=== PATIENT | female | born 1990 | race Caucasian/White ===

== ENCOUNTER 2019-02-17 01:31 | Emergency (ER) | payer SELFPAY ==
[~2019-02-17] VITALS: Ht 177.8 cm; Wt 65.9 kg
[2019-02-17 02:09] LABS: BASOPHILS % (AUTO) 0.8 % (0-1); EOSINOPHILS # (AUTO) 0.1 X10'3 (0-0.9); EOSINOPHILS % (AUTO) 1.9 % (0-6); HEMATOCRIT 34.1 % (35.0-45.0); HEMOGLOBIN 11.8 g/dl (12.0-16.0); LYMPHOCYTES # (AUTO) 2.5 X10'3 (1.1-4.8); MEAN CORPUSCULAR HEMOGLOBIN 31.5 PG (27.0-31.0); MEAN CORPUSCULAR HGB CONC 34.7 g/dL (33.0-36.5); MEAN CORPUSCULAR VOLUME 90.8 FL (78-98); MEAN PLATELET VOLUME 8.2 FL (7.4-10.4); MONOCYTES # (AUTO) 0.4 X10'3 (0-0.9); MONOCYTES % (AUTO) 6.7 % (2-12); NEUTROPHILS % (AUTO) 49.6 % (42-75); PLATELET COUNT 222 X10'3 (140-440); RED BLOOD COUNT 3.75 X10'6 (4.20-5.60); RED CELL DISTRIBUTION WIDTH 13.3 % (11.5-14.5)
--- NOTE | 2019-02-17 02:15 | NUR ---
PT STARTING TO HAVE EMESIS USED WALL SUCTION TO KEEP AIRWAY PATENT. SZ PADS PLACED
[2019-02-17 02:18] LABS: ALANINE AMINOTRANSFERASE 19 U/L (12-78); ALBUMIN 3.6 G/DL (3.4-5.0); ALBUMIN/GLOBULIN RATIO 1.1 (1.1-1.5); ALKALINE PHOSPHATASE 46 IU/L (46-116); ANION GAP 8 (8-16); ASPARTATE AMINO TRANSFERASE 19 U/L (10-37); BILIRUBIN,TOTAL 0.2 MG/DL (0.1-1.0); BLOOD UREA NITROGEN 9 MG/DL (7-18); BUN/CREATININE RATIO 11.8 (6.6-38.0); CALCIUM 7.9 MG/DL (8.5-10.1); CHLORIDE 107 MMOL/L (99-107); CREATININE 0.76 MG/DL (0.40-0.90); GLUCOSE 105 MG/DL (70-104); POTASSIUM 3.2 MMOL/L (3.5-5.1); SODIUM 140 MMOL/L (135-145); TOTAL CARBON DIOXIDE 24.6 MMOL/L (24-32); TOTAL PROTEIN 6.8 G/DL (6.4-8.2); eGFR > 90 ML/MIN
[2019-02-17] MEDS ORDERED: ondansetron/PF 4mg/2ml inj IV ONE (02:25)
[2019-02-17 02:39] LABS: URINE HCG NEGATIVE (NEG)
[2019-02-17 02:45] LABS: URINE AMPHETAMINE SCREEN NEGATIVE (Neg); URINE BARBITUATE SCREEN NEGATIVE (Neg); URINE BENZODIAZEPINES SCREEN NEGATIVE (Neg); URINE CANNABINOID SCREEN NEGATIVE (Neg); URINE COCAINE SCREEN NEGATIVE (Neg); URINE METHADONE SCREEN NEGATIVE (Neg); URINE OPIATE SCREEN NEGATIVE (Neg); URINE PHENCYCLIDINE SCREEN NEGATIVE (Neg)
[2019-02-17 02:46] LABS: UA COLLECTION TYPE STRAIGHT CATH
[2019-02-17 02:47] LABS: CLARITY,URINE CLEAR (Clear); COLOR,URINE YELLOW (Yellow); GLUCOSE, URINE NEGATIVE (Neg); KETONES,URINE NEGATIVE (Neg); LEUKOCYTE ESTERASE ,URINE SMALL (Neg); NITRITES, URINE NEGATIVE (Neg); OCCULT BLOOD,URINE TRACE-LYSED (Neg); PROTEIN,URINE NEGATIVE (Neg); UROBILINOGEN,URINE 0.2 E.U/dL (0.2-1.0)
[2019-02-17 02:52] LABS: RBC,URINE NONE SEEN /HPF (0-2); WBC,URINE 0-4 /HPF (0-4)
[2019-02-17 02:53] LABS: BACTERIA,URINE FEW /HPF (Neg); MUCUS STRANDS NONE SEEN /LPF (Neg); SQUAMOUS EPITHELIAL CELL,UR MANY /LPF (FEW)
[2019-02-17 02:54] LABS: ETHANOL 0.365 GM/DL (0.0-0.010)
--- NOTE | 2019-02-17 04:30 | NUR ---
difficult to get a full hx as patient is too intoxicated to respond md cadet aware
--- NOTE | 2019-02-17 05:15 | NUR ---
PT UP OUT TO BED TO AMBULATE TO BATHROOM ASSISTED PT TO BATHROOM
--- NOTE | 2019-02-17 05:16 | NUR ---
PT BACK TO BED , DR PELLETIER AWARE PT AMBULATED TO BATHROOM . ASKED PT WHO SHE WAS WITH AND WHAT HAPPENED . PT STATES "FRIENDS" PT DENIES TAKING ANYTHING EXCEPT ALCOHOL. PT STATES SHE HAS A HISTORY OF LOW BP AND DENIES ANY OTHER MEDICAL CONDITION AT THIS TIME
--- NOTE | 2019-02-17 06:59 | NUR ---
pt sitting up in bed asking to go the restroom, assisted pt to the restroom. pt stated that she did call her mom to come pick her up.
[2019-02-17 08:47] VITALS: BP 98/48
== END 2019-02-17 08:50 | disposition home or self-care (01) ==
LOC: ER 01:32
DX: F10.929 Alcohol use, unspecified with intoxication, unspecified (principal); R11.10 Vomiting, unspecified; R06.03 Acute respiratory distress; Z88.0 Allergy status to penicillin; Y90.9 Presence of alcohol in blood, level not specified
CPT/HCPCS: 36415; 80053; 80305; 80320; 81001; 81025; 84443; 85025; 93005; 96374; 99284; J2405

== ENCOUNTER 2020-04-22 11:57 | Emergency (ER) | payer MEDICAID, OTHER ==
[~2020-04-22] VITALS: Ht 167.6 cm; Wt 130.0 kg
[2020-04-22] MEDS ORDERED: normal saline 1000ML IV soln IVB ONE (12:05)
--- NOTE | 2020-04-22 12:10 | NUR ---
WATER BOTTLE 16 OZ SMELLS LIKE IT IS 3/4 FULL OF VODKA. PA AWARE. WATER BOTTLE DISPOSED OF
--- NOTE | 2020-04-22 12:11 | NUR ---
WATER BOTTLE OF VODKA WAS ACTUALLY 44 OZ
[2020-04-22] MEDS ORDERED: folic acid 1mg/0.2ml inj IV ONE (12:35)
[2020-04-22] MEDS ORDERED: thiamine 100mg/ml 2ml inj. IV ONE (12:35)
[2020-04-22 13:03] LABS: BASOPHILS % (AUTO) 0.3 % (0-1); EOSINOPHILS % (AUTO) 0.3 % (0-6); HEMOGLOBIN 13.3 g/dl (12.0-16.0); LYMPHOCYTES # (AUTO) 1.6 X10'3 (1.1-4.8); LYMPHOCYTES % (AUTO) 20.9 % (21-51); MEAN CORPUSCULAR HEMOGLOBIN 30.7 PG (27.0-31.0); MEAN CORPUSCULAR HGB CONC 33.3 g/dL (33.0-36.5); MEAN CORPUSCULAR VOLUME 92.3 FL (78-98); MEAN PLATELET VOLUME 8.2 FL (7.4-10.4); MONOCYTES # (AUTO) 0.2 X10'3 (0-0.9); NEUTROPHILS # (AUTO) 5.6 X10'3 (1.8-7.7); NEUTROPHILS % (AUTO) 75.5 % (42-75); PLATELET COUNT 254 X10'3 (140-440); RED BLOOD COUNT 4.34 X10'6 (4.20-5.60); RED CELL DISTRIBUTION WIDTH 13.4 % (11.5-14.5); WHITE BLOOD COUNT 7.5 X10'3 (4.5-11.0)
--- NOTE | 2020-04-22 13:09 | NUR ---
ZAINA TURPIN WITHOUT STRAIGHT CATYH
[2020-04-22 13:24] LABS: ALANINE AMINOTRANSFERASE 30 U/L (12-78); ALBUMIN/GLOBULIN RATIO 1.1 (1.1-1.5); ALKALINE PHOSPHATASE 45 IU/L (46-116); ANION GAP 13 (8-16); ASPARTATE AMINO TRANSFERASE 17 U/L (10-37); BILIRUBIN,TOTAL 0.2 MG/DL (0.1-1.0); BLOOD UREA NITROGEN 8 MG/DL (7-18); BUN/CREATININE RATIO 9.4 (6.6-38.0); CALCIUM 8.4 MG/DL (8.5-10.1); CHLORIDE 106 MMOL/L (99-107); CREATININE 0.85 MG/DL (0.40-0.90); GLUCOSE 86 MG/DL (70-104); POTASSIUM 3.7 MMOL/L (3.5-5.1); SODIUM 143 MMOL/L (135-145); TOTAL CARBON DIOXIDE 23.8 MMOL/L (24-32); TOTAL PROTEIN 7.8 G/DL (6.4-8.2); eGFR 79 ML/MIN
--- NOTE | 2020-04-22 13:46 | NUR ---
PATIENT IS THREATENING TO LEAVE AMA AGAIN. I DISUSSED THE FACT THAT SHE IS NOT AXOX4 SO THEREFROE I WOULD NEED TO ALERT [facility] OF HER WHEN SHE LEAVES. SHE THREATENED TO HAVE HER FATHER DAKSHA THE HOSPITAL AND EVERYONE INVILVED IN HER CARE
--- NOTE | 2020-04-22 13:48 | NUR ---
UP TO BSC TO GIVE URINE SAMPLE, PATIETN UNSTEADY ON HER FEET
[2020-04-22 14:07] LABS: URINE AMPHETAMINE SCREEN NEGATIVE (Neg); URINE BARBITUATE SCREEN NEGATIVE (Neg); URINE BENZODIAZEPINES SCREEN NEGATIVE (Neg); URINE CANNABINOID SCREEN NEGATIVE (Neg); URINE COCAINE SCREEN NEGATIVE (Neg); URINE METHADONE SCREEN NEGATIVE (Neg); URINE OPIATE SCREEN NEGATIVE (Neg); URINE PHENCYCLIDINE SCREEN NEGATIVE (Neg)
[2020-04-22 14:10] LABS: CLARITY,URINE CLEAR (Clear); COLOR,URINE YELLOW (Yellow); GLUCOSE, URINE NEGATIVE (Neg); KETONES,URINE NEGATIVE (Neg); LEUKOCYTE ESTERASE ,URINE NEGATIVE (Neg); NITRITES, URINE NEGATIVE (Neg); OCCULT BLOOD,URINE TRACE-LYSED (Neg); PH,URINE 5.5 (4.8-8.0); PROTEIN,URINE NEGATIVE (Neg); UROBILINOGEN,URINE 0.2 E.U/dL (0.2-1.0)
[2020-04-22 14:13] LABS: UA COLLECTION TYPE CLN CATCH MIDSTREAM
[2020-04-22 14:24] LABS: BACTERIA,URINE NONE SEEN /HPF (Neg); RBC,URINE NONE SEEN /HPF (0-2); SQUAMOUS EPITHELIAL CELL,UR FEW /LPF (FEW); WBC,URINE 0-4 /HPF (0-4)
--- NOTE | 2020-04-22 14:30 | NUR ---
SPOKE TO IRAJ AND TRESSA PARENTS OUTSIDE OF HOSPITAL. FATHER STATED THAT HIS DAUGHTER HAS TRIED IT ALL FOR ETOH. FATIMAH LIVES ALONE IN ONE OF HER PAREB HOUSES AND SHE IS FINE TO RETURN
--- NOTE | 2020-04-22 15:55 | NUR ---
SPOKE TO PATIENT'S MOTHER TRESSA STORY [phone]. PATIENT IS READY FOR DISCHARGE
[2020-04-22 16:20] VITALS: BP 112/69
== END 2020-04-22 16:32 | disposition home or self-care (01) ==
LOC: ER 11:57
DX: F10.129 Alcohol abuse with intoxication, unspecified (principal); R45.1 Restlessness and agitation; R47.81 Slurred speech; Z88.0 Allergy status to penicillin; Y90.9 Presence of alcohol in blood, level not specified
CPT/HCPCS: 36415; 71045; 80053; 80305; 80320; 81001; 82948; 85025; 93005; 96361; 96374; 96375; 99285; J3411; J3490; J7030

== ENCOUNTER 2020-11-22 23:31 | Emergency (ER) | payer BC ==
[~2020-11-22] VITALS: Ht 172.7 cm; Wt 63.6 kg
[2020-11-22] MEDS ORDERED: magnesium 2GM in 50ml NS 50 ML IV ONE (23:40)
[2020-11-22] MEDS ORDERED: thiamine inj. 100 MG in normal saline 100ml IV soln 99 ML IV ONE (23:40)
[2020-11-22] MEDS ORDERED: ondansetron/PF 4mg/2ml inj IV ONE (23:40)
[2020-11-22] MEDS ORDERED: normal saline 1000ML IV soln IVB ONE (23:40)
[2020-11-22 23:49] LABS: BASOPHILS # (AUTO) 0.1 X10'3 (0-0.2); BASOPHILS % (AUTO) 0.9 % (0-1); EOSINOPHILS # (AUTO) 0.2 X10'3 (0-0.9); EOSINOPHILS % (AUTO) 2.1 % (0-6); HEMATOCRIT 40.1 % (35.0-45.0); HEMOGLOBIN 13.3 g/dl (12.0-16.0); LYMPHOCYTES # (AUTO) 3.7 X10'3 (1.1-4.8); LYMPHOCYTES % (AUTO) 44.5 % (21-51); MEAN CORPUSCULAR HEMOGLOBIN 30.2 PG (27.0-31.0); MEAN CORPUSCULAR VOLUME 91.5 FL (78-98); MONOCYTES # (AUTO) 0.5 X10'3 (0-0.9); MONOCYTES % (AUTO) 5.8 % (2-12); NEUTROPHILS # (AUTO) 3.8 X10'3 (1.8-7.7); NEUTROPHILS % (AUTO) 46.7 % (42-75); PLATELET COUNT 397 X10'3 (140-440); RED BLOOD COUNT 4.38 X10'6 (4.20-5.60); RED CELL DISTRIBUTION WIDTH 13.8 % (11.5-14.5); WHITE BLOOD COUNT 8.2 X10'3 (4.5-11.0)
[2020-11-23 00:02] LABS: ALANINE AMINOTRANSFERASE 19 U/L (12-78); ALBUMIN 3.8 G/DL (3.4-5.0); ALKALINE PHOSPHATASE 44 IU/L (46-116); ANION GAP 9 (8-16); ASPARTATE AMINO TRANSFERASE 15 U/L (10-37); BILIRUBIN,TOTAL 0.1 MG/DL (0.1-1.0); BLOOD UREA NITROGEN 12 MG/DL (7-18); BUN/CREATININE RATIO 15.8 (6.6-38.0); CALCIUM 8.1 MG/DL (8.5-10.1); CHLORIDE 106 MMOL/L (99-107); CREATININE 0.76 MG/DL (0.40-0.90); GLUCOSE 107 MG/DL (70-104); POTASSIUM 3.6 MMOL/L (3.5-5.1); SODIUM 142 MMOL/L (135-145); TOTAL CARBON DIOXIDE 27.3 MMOL/L (24-32); TOTAL PROTEIN 7.7 G/DL (6.4-8.2); eGFR 89 ML/MIN
[2020-11-23 00:03] LABS: MAGNESIUM 2.3 MG/DL (1.5-2.4)
[2020-11-23 00:04] LABS: ETHANOL 0.372 GM/DL (0.0-0.010)
[2020-11-23] MEDS ORDERED: phenobarbital inj 260 MG in normal saline 100ml IV soln 100 ML IV ONE (00:10)
[2020-11-23 00:19] LABS: CLARITY,URINE CLEAR (Clear); COLOR,URINE STRAW (Yellow); GLUCOSE, URINE NEGATIVE (Neg); KETONES,URINE NEGATIVE (Neg); LEUKOCYTE ESTERASE ,URINE NEGATIVE (Neg); NITRITES, URINE NEGATIVE (Neg); OCCULT BLOOD,URINE NEGATIVE (Neg); PROTEIN,URINE NEGATIVE (Neg); UROBILINOGEN,URINE 0.2 E.U/dL (0.2-1.0)
[2020-11-23] MEDS ORDERED: thiamine 100mg/ml 2ml inj. IV ONE (00:20)
[2020-11-23 00:24] LABS: UA COLLECTION TYPE STRAIGHT CATH
[2020-11-23 00:31] LABS: URINE AMPHETAMINE SCREEN NEGATIVE (Neg); URINE BARBITUATE SCREEN NEGATIVE (Neg); URINE BENZODIAZEPINES SCREEN NEGATIVE (Neg); URINE CANNABINOID SCREEN NEGATIVE (Neg); URINE COCAINE SCREEN NEGATIVE (Neg); URINE METHADONE SCREEN NEGATIVE (Neg); URINE OPIATE SCREEN NEGATIVE (Neg); URINE PHENCYCLIDINE SCREEN NEGATIVE (Neg)
[2020-11-23 00:33] LABS: URINE HCG NEGATIVE (NEG)
--- NOTE | 2020-11-23 01:28 | NUR ---
MINDY STORY [phone]
[2020-11-23 01:54] VITALS: BP 105/72
--- NOTE | 2020-11-23 02:56 | NUR ---
AWAKE AND UP TO THE BATHROOM INDEPENDENTLY. COOPERATIVE WITH CARE. BACK TO [facility] AND NO COMPLAINTS AT THIS TIME.
== END 2020-11-23 03:49 | disposition home or self-care (01) ==
LOC: ER 23:31
DX: F10.920 Alcohol use, unspecified with intoxication, uncomplicated (principal); E07.9 Disorder of thyroid, unspecified; Y90.9 Presence of alcohol in blood, level not specified
CPT/HCPCS: 36415; 80053; 80305; 80320; 81003; 81025; 83735; 85025; 93005; 96365; 96366; 96368; 96375; 99285; J2405; J2560; J3411; J3475; J7030

== ENCOUNTER 2024-10-17 17:38 | Emergency (ER) | payer BC ==
[~2024-10-17] VITALS: Ht 180.3 cm; Wt 70.7 kg
[2024-10-17 17:41] VITALS: BP 137/106; PULSE 88; TEMP 97.6; O2SAT 97
[2024-10-17 18:03] VITALS: RESP 18
[2024-10-17 18:37] LABS: BASOPHILS % (AUTO) 0.6 % (0-1); EOSINOPHILS # (AUTO) 0.1 X10'3 (0-0.9); EOSINOPHILS % (AUTO) 2.1 % (0-6); HEMATOCRIT 41.1 % (35.0-45.0); HEMOGLOBIN 13.9 g/dl (12.0-16.0); LYMPHOCYTES # (AUTO) 2.7 X10'3 (1.1-4.8); LYMPHOCYTES % (AUTO) 46.4 % (21-51); MEAN CORPUSCULAR HEMOGLOBIN 30.5 PG (27.0-31.0); MEAN CORPUSCULAR HGB CONC 33.8 g/dL (33.0-36.5); MEAN CORPUSCULAR VOLUME 90.1 FL (78-98); MEAN PLATELET VOLUME 8.1 FL (7.4-10.4); MONOCYTES # (AUTO) 0.4 X10'3 (0-0.9); MONOCYTES % (AUTO) 6.1 % (2-12); NEUTROPHILS # (AUTO) 2.7 X10'3 (1.8-7.7); NEUTROPHILS % (AUTO) 44.8 % (42-75); PLATELET COUNT 203 X10'3 (140-440); RED BLOOD COUNT 4.56 X10'6 (4.20-5.60); RED CELL DISTRIBUTION WIDTH 13.8 % (11.5-14.5); WHITE BLOOD COUNT 5.9 X10'3 (4.5-11.0)
[2024-10-17 18:50] LABS: ALANINE AMINOTRANSFERASE 29 U/L (12-78); ALBUMIN 3.8 G/DL (3.4-5.0); ALBUMIN/GLOBULIN RATIO 1.1 (1.1-1.5); ALKALINE PHOSPHATASE 61 IU/L (46-116); ANION GAP 12 (8-16); ASPARTATE AMINO TRANSFERASE 50 U/L (10-37); BILIRUBIN,TOTAL 0.4 MG/DL (0.1-1.0); BLOOD UREA NITROGEN 8 MG/DL (7-18); BUN/CREATININE RATIO 9.9 (10.0-20.0); CALCIUM 8.1 MG/DL (8.5-10.1); CHLORIDE 109 MMOL/L (99-107); CREATININE 0.81 MG/DL (0.40-0.90); GLUCOSE 98 MG/DL (70-104); POTASSIUM 3.7 MMOL/L (3.5-5.1); SODIUM 148 MMOL/L (135-145); TOTAL CARBON DIOXIDE 26.8 MMOL/L (24-32); TOTAL PROTEIN 7.3 G/DL (6.4-8.2); eCRCL 109 ML/MIN; eGFR 81 ML/MIN
[2024-10-17 18:51] LABS: URINE HCG NEGATIVE (NEG)
[2024-10-17 18:56] LABS: BILIRUBIN,URINE NEGATIVE (Neg); CLARITY,URINE CLEAR (Clear); COLOR,URINE STRAW (Yellow); GLUCOSE, URINE NEGATIVE (Neg); KETONES,URINE NEGATIVE (Neg); LEUKOCYTE ESTERASE ,URINE SMALL (Neg); NITRITES, URINE NEGATIVE (Neg); OCCULT BLOOD,URINE TRACE-INTACT (Neg); PROTEIN,URINE NEGATIVE (Neg); UROBILINOGEN,URINE 0.2 E.U/dL (0.2-1.0)
[2024-10-17 18:58] LABS: AMYLASE 62 U/L (25-115); LIPASE 123 U/L (16-77)
[2024-10-17 19:04] LABS: UA COLLECTION TYPE CLN CATCH MIDSTREAM
[2024-10-17 19:10] LABS: BACTERIA,URINE FEW /HPF (Neg); MUCUS STRANDS FEW /LPF (Neg); RBC,URINE 0-2 /HPF (0-2); SQUAMOUS EPITHELIAL CELL,UR FEW /LPF (FEW)
[2024-10-17 19:15] LABS: ETHANOL 420 MG/DL (<10)
== END 2024-10-17 20:39 | disposition left against medical advice (07) ==
LOC: ER 17:39
DX: F10.90 Alcohol use, unspecified, uncomplicated (principal); Z53.21 Procedure and treatment not carried out due to patient leaving prior to being seen by health care provider; Z88.0 Allergy status to penicillin; Y90.9 Presence of alcohol in blood, level not specified
CPT/HCPCS: 36415; 80053; 80320; 81001; 81025; 82150; 83690; 85025; 87088